=== PATIENT | male | born 1955 | race American Indian/Alaskan Native ===

== ENCOUNTER 2017-01-17 09:21 | Outpatient (CLI) | payer SELFPAY ==
--- NOTE | 2017-01-17 12:54 | Cat Scan Report ---
CT ABDOMEN AND PELVIS WITHOUT CONTRAST INDICATION: Prostate cancer. COMPARISON: None similar at this institution. FINDINGS: Abdomen and pelvis CT performed following oral contrast only. LUNG BASES: Top normal heart size. Nonspecific distal esophageal wall thickening, not excluded for gastroesophageal reflux and/or hiatal hernia, amongst others. ABDOMEN: Please note that sensitivity to detect small visceral lesions is limited due to the absence of intravenous or oral contrast. Few small right hepatic calcified granulomas superiorly. Diffuse fatty hepatic infiltration. Right hepatic lobe approximately 18 cm in midclavicular length. Otherwise grossly unremarkable unenhanced liver, spleen, gallbladder, adrenals, nonaneurysmal abdominal aorta, IVC and non-hydronephrotic kidneys. Approximately 1 cm right renal cortical cyst inferomedially. Approximately 1.2 cm simple cystic attenuation focus possibly off the pancreatic head inferiorly, axial image 173, series 2. Otherwise grossly unremarkable pancreas. No ascites. Retroperitoneal lymphadenopathy though suspected, the largest paracaval/right iliac lymph node approximately 2.7 x 1.6 cm, axial image 234, series 2. Opacified GI tract nonobstructive. Normal appendix. Mild colonic stool. Possibly injection related periumbilical anterior abdominal wall subcutaneous stranding. PELVIS: Mildly enlarged prostate creates an impression at the bladder base. Urinary bladder suboptimally distended with slight diffuse exaggerated wall thickness. Few pelvic phleboliths. Grossly unremarkable seminal vesicles. Mild rectosigmoid stool. No free fluid. Right hemipelvic lymphadenopathy with the largest right lateral pelvic wall/iliac lymph node measuring up to 2.4 x 1.3 cm, axial image 315, series 2. Multilevel degenerative spurring along the imaged spine and SI joints. Left gluteal calcified injection granuloma. Prominent 5.7 x 2.3 cm intermuscular fat/possible lipoma medial to the right lesser trochanter may also be present, axial image 407. CONCLUSION: 1. Retroperitoneal and pelvic lymphadenopathy on the right suspicious for metastatic disease, as detailed above. No definite CT bony metastatic involvement however identified at this time. 2. Approximately 1.2 cm pancreatic head cystic lesion inferiorly, incompletely characterized on this limited, unenhanced exam. 3. Various other incidental findings, including distal esophageal prominence, fatty enlarged liver, old healed granulomatous disease and a right renal cyst, amongst others, as described. Please also correlate clinically, with similar prior imaging if available, or followup on subsequent CT or MRI performed as a pancreatic mass protocol, as warranted. Thank you for the opportunity to participate in this patient's care.
--- NOTE | 2017-01-17 13:51 | Nuclear Medicine Report ---
BONE SCAN: History: Prostate cancer. Comparison: CT abdomen and pelvis without contrast performed the same day. After injection of isotope, gamma camera imaging of the bony system was done. There is a normal uptake of isotope throughout the bony structures without areas of significantly increased or decreased uptake. Normal uptake in the urinary system is seen. IMPRESSION: Negative bone scan.
== END 2017-01-17 09:22 | disposition home or self-care (01) ==
LOC: NM 09:21
PROVIDERS: ATTEND Urology
DX: C61 Malignant neoplasm of prostate (principal); N28.1 Cyst of kidney, acquired; K75.3 Granulomatous hepatitis, not elsewhere classified; K76.0 Fatty (change of) liver, not elsewhere classified; N40.0 Benign prostatic hyperplasia without lower urinary tract symptoms; N32.89 Other specified disorders of bladder; I87.8 Other specified disorders of veins; K86.89 Other specified diseases of pancreas
CPT/HCPCS: 74176; 78306; A9503

== ENCOUNTER 2021-03-02 07:52 | Outpatient (CLI) | payer MEDICARE ==
--- NOTE | 2021-03-02 11:49 | Nuclear Medicine Report ---
NUCLEAR MEDICINE WHOLE BODY BONE IMAGING STUDY. HISTORY: Prostate cancer, back pain COMPARISON: Bone scan 01/17/2017. TECHNIQUE: The patient was administered 26.3 mCi of technetium 99m labeled MDP intravenously. FINDINGS: There is extensive multifocal abnormal tracer activity involving both femurs, humeri, skull, ribs, sp ine, and pelvic bones. There is normal soft tissue activity in the kidneys and urinary bladder. IMPRESSION: Widespread osseous metastatic disease. Signer Name: Bradley Monique MD Signed: 03/02/2021 11:44 AM Workstation Name: [id number]
== END 2021-03-02 07:53 | disposition home or self-care (01) ==
LOC: NM 07:52
PROVIDERS: ATTEND Urology
DX: C61 Malignant neoplasm of prostate (principal)
CPT/HCPCS: 78306; A9503